=== PATIENT | female | born 1980 | race Two or more races ===

== ENCOUNTER 2023-03-27 14:55 | Inpatient (IN) ==
[2023-03-27] MEDS ORDERED: TUSSIONEX PENNKINETIC SUSP PO PRN (17:09)
[2023-03-27] MEDS ORDERED: SOLU-Medrol 125 MG VIAL IVP ONE (17:10)
[2023-03-27 17:34] LABS: ABG BASE EXCESS 1.2 mmol/L (-2.0-2.0)
[2023-03-27 18:29] LABS: BASOPHILS # (AUTO) 0.2 X10^3/uL (0.0-0.1); BASOPHILS % (AUTO) 0.9 % (0.2-1.0); HEMOGLOBIN 12.8 g/dL (12.0-16.0); LYMPHOCYTES # (AUTO) 3.8 X10^3/uL (1.3-2.9); LYMPHOCYTES % (AUTO) 21.3 % (21.0-51.0); MEAN CORPUSCULAR HEMOGLOBIN 30.9 pg (27.0-34.0); MEAN CORPUSCULAR HGB CONC 33.7 g/dL (33.0-35.0); MEAN CORPUSCULAR VOLUME 91.5 fL (80.0-100.0); MEAN PLATELET VOLUME 8.8 fL (7.4-11.0); MONOCYTES # (AUTO) 1.8 x10^3/uL (0.3-0.8); NEUTROPHILS # (AUTO) 12.1 x10^3/uL (2.2-4.8); NEUTROPHILS % (AUTO) 67.8 % (42.0-75.0); PLATELET COUNT 550 X10^3/uL (150.0-450.0); RED BLOOD COUNT 4.15 X10^6/uL (3.5-5.4); RED CELL DISTRIBUTION WIDTH 14.1 % (11.6-16.5); WHITE BLOOD COUNT 17.8 X10^3/uL (3.6-10.0)
[2023-03-27 18:40] LABS: ALANINE AMINOTRANSFERASE 44 Units/L (12-78); ALBUMIN 3.7 g/dL (3.4-5.0); ALKALINE PHOSPHATASE 115 Units/L (46-116); ASPARTATE AMINO TRANSFERASE 21 Units/L (15-37); BLOOD UREA NITROGEN 7 mg/dL (7-18); CALCIUM 8.8 mg/dL (8.5-10.1); CARBON DIOXIDE 25.4 mmol/L (21-32); CHLORIDE 104 mmol/L (98-107); CREATININE 0.87 mg/dL (0.55-1.02); GLUCOSE 99 mg/dL (65-99); POTASSIUM 3.4 mmol/L (3.5-5.1); SODIUM 139 mmol/L (136-145); TOTAL PROTEIN 8.4 g/dL (6.4-8.2); eGFR NON BLACK RACES > 60 (>60)
[2023-03-27] MEDS: LEVAQUIN PREMIX IV 750 MG 750 MG/150 ML BAG IV SCH (18:48)
[2023-03-27] MEDS ORDERED: NS 1/2 1,000 ML IV 1,000 ML IV ONE (20:22)
--- NOTE | 2023-03-27 20:48 | RAD ---
EXAM:CHEST, PA/LAT ADULTHISTORY:POSSIBLE PNEUMONIA;COMPARISON:None availableTECHNIQUE:PA and lateral projections, 2 imagesFINDINGS:Cardiac silhouette is normal in size and configuration.Pulmonary vascular sizes are normal.No effusion.No focal airspace disease.Surgical clips overlying the right chest.No pneumothorax.No acute osseous abnormalityIMPRESSION:No imaging findings of acute cardiopulmonary disease.THIS IS AN ELECTRONICALLY VERIFIED FINAL [id number]/27/2023 8:44 PM - Electronically signed by Jorge A Guerra MD
[2023-03-27] MEDS: NS 1/2 1,000 ML IV 1,000 ML IV SCH (20:56)
[2023-03-27] MEDS: ROBITUSSIN DM PO SCH (20:56)
[2023-03-27] MEDS: DECADRON JET NEB (RESP USE) NEB SCH (21:15)
[2023-03-27] MEDS: PULMICORT NEB TX 0.5 MG NEB SCH (21:15)
[2023-03-27] MEDS: DUONEB 0.5 MG/3 MG (3 mL) NEB SCH (21:15)
[2023-03-28] MEDS: NS 1/2 1,000 ML IV 1,000 ML IV SCH ×4 (00:27→23:40)
[2023-03-28] MEDS: DUONEB 0.5 MG/3 MG (3 mL) NEB SCH ×6 (00:40→20:30)
[2023-03-28] MEDS: SOLU-Medrol 125 MG VIAL IVP SCH ×3 (05:39→21:12)
[2023-03-28 06:08] LABS: BASOPHILS % (AUTO) 0.3 % (0.2-1.0); HEMATOCRIT 34.3 % (36.0-47.0); HEMOGLOBIN 11.5 g/dL (12.0-16.0); LYMPHOCYTES # (AUTO) 4.2 X10^3/uL (1.3-2.9); LYMPHOCYTES % (AUTO) 25.3 % (21.0-51.0); MEAN CORPUSCULAR HEMOGLOBIN 30.7 pg (27.0-34.0); MEAN CORPUSCULAR HGB CONC 33.6 g/dL (33.0-35.0); MEAN CORPUSCULAR VOLUME 91.4 fL (80.0-100.0); MEAN PLATELET VOLUME 8.2 fL (7.4-11.0); MONOCYTES # (AUTO) 1.7 x10^3/uL (0.3-0.8); MONOCYTES % (AUTO) 10.1 % (0.0-13.0); NEUTROPHILS # (AUTO) 10.6 x10^3/uL (2.2-4.8); NEUTROPHILS % (AUTO) 64.3 % (42.0-75.0); PLATELET COUNT 500 X10^3/uL (150.0-450.0); RED BLOOD COUNT 3.75 X10^6/uL (3.5-5.4); RED CELL DISTRIBUTION WIDTH 13.9 % (11.6-16.5); WHITE BLOOD COUNT 16.5 X10^3/uL (3.6-10.0)
[2023-03-28 06:18] LABS: ALANINE AMINOTRANSFERASE 38 Units/L (12-78); ALBUMIN 3.1 g/dL (3.4-5.0); ALKALINE PHOSPHATASE 93 Units/L (46-116); ASPARTATE AMINO TRANSFERASE 22 Units/L (15-37); BLOOD UREA NITROGEN 9 mg/dL (7-18); CALCIUM 8.2 mg/dL (8.5-10.1); CARBON DIOXIDE 24.5 mmol/L (21-32); CHLORIDE 104 mmol/L (98-107); COR CA(FOR HYPOALB) 8.9 mg/dL (8.5-10.1); COR NA(FOR HYPERGLY) 141 mmol/L (136-145); CREATININE 0.83 mg/dL (0.55-1.02); GLUCOSE 120 mg/dL (65-99); MAGNESIUM 1.9 mg/dL (2.0-2.9); POTASSIUM 3.4 mmol/L (3.5-5.1); SODIUM 141 mmol/L (136-145); TOTAL PROTEIN 7.1 g/dL (6.4-8.2); eGFR NON BLACK RACES > 60 (>60)
[2023-03-28] MEDS ORDERED: CONSULT PHARMACY - POTASSIUM & MAGNESIUM XX SCH (07:00)
[2023-03-28] MEDS ORDERED: K-DUR TAB 20 MEQ PO SCH (09:00)
[2023-03-28] MEDS: DECADRON JET NEB (RESP USE) NEB SCH ×4 (09:10→20:30)
[2023-03-28] MEDS: PULMICORT NEB TX 0.5 MG NEB SCH ×2 (09:10→20:30)
[2023-03-28] MEDS: LEVAQUIN PREMIX IV 750 MG 750 MG/150 ML BAG IV SCH (09:30)
[2023-03-28] MEDS: ROBITUSSIN DM PO SCH ×4 (09:46→20:37)
[2023-03-28] MEDS: MAG-OX TAB PO SCH ×2 (09:47→11:20)
[2023-03-28] MEDS ORDERED: NS 1/2 1,000 ML IV 1,000 ML IV ONE ×2 (09:54→23:22)
--- NOTE | 2023-03-28 15:01 | PCM.PROG ---
Progress Note Progress Note for Day of Date of Exam: 03/28/23 Subjective Subjective: PT IS 42F, DIRECT ADMIT FROM DR LEES'S OFFICE WITH FAILED OUTPATIENT TREATMENT OF ACUTE BRONCHITIS FOLLOWING INFLUENZA VIRUS. PT REPORTS SHE TESTED POSITIVE FOR INFLUENZA LAST FRIDAY. PT TOOK TAMIFLU, PO ANTIBIOTICS AND PO STEROIDS WITHOUT IMPROVEMENT. PT REPORTS DEHYDRATION, FATIGUE AND CCC. PT IS CURRENTLY ON IV ATBX AND SOLU MEDROL. PT IS ON GENTLE IV HYDRATION. PT BP 125/66 THIS MORNING. A RESP SWAB WAS OBTAINED ON ADMISSION, NEGATIVE FOR RSV. AIT PENDING. Past Medical Family Social History Allergies: Allergies No Known Drug Allergies Allergy (Verified 01/16/21 17:43) Vital Signs and I&O's Vital Signs: Vital Signs Temperature 98.2 F Temperature 97.6 F Pulse Rate [Apical] 88 Pulse Rate [Apical] 71 Pulse Rate 70 Respiratory Rate 20 Respiratory Rate 20 Blood Pressure [Left Arm] 125/66 Blood Pressure [Left Arm] 123/58 O2 Sat by Pulse Oximetry 95 O2 Sat by Pulse Oximetry 96 O2 Sat by Pulse Oximetry 96 Intake and Output: Intake & Output 03/26/23 03/27/23 03/28/23 03/29/23 11:59 11:59 11:59 11:59 Intake Total 1061 / 1061 Balance 1061 / 1061 Physical Exam Oriented: Normal Eyes: Normal Ear: Normal Nose: Injected and Discharge Throat: Red Respiratory: Wheezes and Rhonchi Cardiovascular: Normal : Normal Tenderness: Epigastric and Mild Skin: Normal Musculoskeletal: Normal Psychiatric: Normal Mood Description: Calm Speech Pattern: Clear and Appropriate Laboratory and Diagnostics 03/28/23 05:45 03/28/23 05:45 Labs: 03/27/23 22:10 Sputum - Expectorated Sputum - Final Laboratory WBC 16.5 X10^3/uL (3.6-10.0) H 03/28/23 05:45 RBC 3.75 X10^6/uL (3.5-5.4) 03/28/23 05:45 Hgb 11.5 g/dL (12.0-16.0) L 03/28/23 05:45 Hct 34.3 % (36.0-47.0) L 03/28/23 05:45 MCV 91.4 fL (80.0-100.0) 03/28/23 05:45 MCH 30.7 pg (27.0-34.0) 03/28/23 05:45 MCHC 33.6 g/dL (33.0-35.0) 03/28/23 05:45 RDW 13.9 % (11.6-16.5) 03/28/23 05:45 Plt Count 500 X10^3/uL (150.0-450.0) H 03/28/23 05:45 MPV 8.2 fL (7.4-11.0) 03/28/23 05:45 Neut % (Auto) 64.3 % (42.0-75.0) 03/28/23 05:45 Lymph % (Auto) 25.3 % (21.0-51.0) 03/28/23 05:45 [place] % (Auto) 10.1 % (0.0-13.0) 03/28/23 05:45 Eos % (Auto) 0.0 % (0.9-2.9) L 03/28/23 05:45 Baso % (Auto) 0.3 % (0.2-1.0) 03/28/23 05:45 Neut # (Auto) 10.6 x10^3/uL (2.2-4.8) H 03/28/23 05:45 Lymph # (Auto) 4.2 X10^3/uL (1.3-2.9) H 03/28/23 05:45 [place] # (Auto) 1.7 x10^3/uL (0.3-0.8) H 03/28/23 05:45 Eos # (Auto) 0.0 x10^3/uL (0.0-0.2) 03/28/23 05:45 Baso # (Auto) 0.0 X10^3/uL (0.0-0.1) 03/28/23 05:45 Absolute Nucleated RBC 0.0 /100WBC 03/28/23 05:45 Sample Site Lbra 03/27/23 17:29 ABG pH 7.450 (7.35-7.45) 03/27/23 17:29 ABG pCO2 36.0 mmHg (35.0-45.0) 03/27/23 17:29 ABG pO2 78.0 mmHg (80.0-100.0) L 03/27/23 17:29 ABG HCO3 25.0 mmol/L (22-26) 03/27/23 17:29 ABG O2 Saturation 96.0 % (90-100) 03/27/23 17:29 ABG Base Excess 1.2 mmol/L (-2.0-2.0) 03/27/23 17:29 Jairo Test N/a 03/27/23 17:29 A-a Gradient 27.0 mmHg 03/27/23 17:29 FiO2 21.0 03/27/23 17:29 Blood Gas Comments Pt shanthi well elj 03/27/23 17:29 Sodium 141 mmol/L (136-145) 03/28/23 05:45 Corrected Sodium 141 mmol/L (136-145) 03/28/23 05:45 Potassium 3.4 mmol/L (3.5-5.1) L 03/28/23 05:45 Chloride 104 mmol/L (98-107) 03/28/23 05:45 Carbon Dioxide 24.5 mmol/L (21-32) 03/28/23 05:45 BUN 9 mg/dL (7-18) 03/28/23 05:45 Creatinine 0.83 mg/dL (0.55-1.02) 03/28/23 05:45 Est GFR (MDRD) Af Amer > 60 (>60) 03/28/23 05:45 Est GFR (MDRD) Non-Af > 60 (>60) 03/28/23 05:45 Glucose 120 mg/dL (65-99) H 03/28/23 05:45 Calcium 8.2 mg/dL (8.5-10.1) L 03/28/23 05:45 Corrected Calcium 8.9 mg/dL (8.5-10.1) 03/28/23 05:45 Magnesium 1.9 mg/dL (2.0-2.9) L 03/28/23 05:45 Total Bilirubin 0.50 mg/dL (0.2-1.0) 03/28/23 05:45 AST 22 Units/L (15-37) 03/28/23 05:45 ALT 38 Units/L (12-78) 03/28/23 05:45 Alkaline Phosphatase 93 Units/L (46-116) 03/28/23 05:45 Total Protein 7.1 g/dL (6.4-8.2) 03/28/23 05:45 Albumin 3.1 g/dL (3.4-5.0) L 03/28/23 05:45 Globulin 4.0 g/dL (2.5-4.5) 03/28/23 05:45 Albumin/Globulin Ratio 0.8 Ratio (1.1-2.1) L 03/28/23 05:45 SARS-CoV-2 (PCR) Negative (NEGATIVE) 03/27/23 21:13 Influenza Type A (PCR) Negative (NEGATIVE) 03/27/23 21:13 Influenza Type B (PCR) Negative (NEGATIVE) 03/27/23 21:13 RSV (PCR) Negative (NEGATIVE) 03/27/23 21:13 Plan (1) Bronchitis: Status: Acute Narrative Support Text: IV ATBX, IV SOLU MEDROL, IV HYDRATION CXR ON ADMISSION, VERIFY HOME MEDICATION RESP THERAPY, PRN SUPPLEMENTAL O2 VIRAL SWAB ON ADMISSION ANTITUSSIVE MEDICATION (2) Influenza: Status: Acute
--- NOTE | 2023-03-28 15:06 | DR.H&P ---
H&P History & Physical for Day of: H&P Date: 03/27/23 Chief Complaint Chief Complaint: FLU, CCC Allergies Allergies Allergy/AdvReac Type Severity Reaction Status Date / Time No Known Drug Allergies Allergy Verified 01/16/21 17:43 History of Present Illness History of Present Illness: PT IS 42 WF, DIRECT ADMIT FROM DR LEES'S OFFICE WITH AB, FAILED OUTPT TREATMENT. PT REPORTS SHE WAS POSITIVE FOR THE FLU LAST FRIDAY. PT HAD TAKEN PO TAMIFLU, PO ANTIBIOTICS, PO STEROIDS WITH BREATHING TREATMENTS AND NO IMPROVEMENT. PT ADMITTED FOR TREATMENT OF ACUTE ILLNESS. Past Surgical History Surgical History: Cholecystectomy and Spleenectomy Family History Family Medical History: Diabetes Mellitus and Hypertension Social History Does patient currently use any type of tobacco product: No Have you used tobacco products in the last 12 months: No Type of Tobacco Use: None Does any household member use tobacco: No Alcohol Use: None Drug Use: None Medications Home Medications: Home Medications Medication Instructions Recorded Confirmed Type codeine 10 mg-guaifenesin 100 mg/5 10 ml PO Q4-6H PRN 03/27/23 03/27/23 History mL oral liquid levofloxacin 500 mg tablet 500 mg PO QDAY 03/27/23 03/27/23 History lisinopril 10 mg tablet 10 mg PO QDAY 03/27/23 03/27/23 History methylprednisolone 4 mg tablets in 4 mg PO PER PKG DIR 03/27/23 03/27/23 History a dose pack Labs 03/28/23 05:45 03/28/23 05:45 Labs: 03/27/23 22:10 Sputum - Expectorated Sputum - Final Laboratory WBC 16.5 X10^3/uL (3.6-10.0) H 03/28/23 05:45 RBC 3.75 X10^6/uL (3.5-5.4) 03/28/23 05:45 Hgb 11.5 g/dL (12.0-16.0) L 03/28/23 05:45 Hct 34.3 % (36.0-47.0) L 03/28/23 05:45 MCV 91.4 fL (80.0-100.0) 03/28/23 05:45 MCH 30.7 pg (27.0-34.0) 03/28/23 05:45 MCHC 33.6 g/dL (33.0-35.0) 03/28/23 05:45 RDW 13.9 % (11.6-16.5) 03/28/23 05:45 Plt Count 500 X10^3/uL (150.0-450.0) H 03/28/23 05:45 MPV 8.2 fL (7.4-11.0) 03/28/23 05:45 Neut % (Auto) 64.3 % (42.0-75.0) 03/28/23 05:45 Lymph % (Auto) 25.3 % (21.0-51.0) 03/28/23 05:45 [place] % (Auto) 10.1 % (0.0-13.0) 03/28/23 05:45 Eos % (Auto) 0.0 % (0.9-2.9) L 03/28/23 05:45 Baso % (Auto) 0.3 % (0.2-1.0) 03/28/23 05:45 Neut # (Auto) 10.6 x10^3/uL (2.2-4.8) H 03/28/23 05:45 Lymph # (Auto) 4.2 X10^3/uL (1.3-2.9) H 03/28/23 05:45 [place] # (Auto) 1.7 x10^3/uL (0.3-0.8) H 03/28/23 05:45 Eos # (Auto) 0.0 x10^3/uL (0.0-0.2) 03/28/23 05:45 Baso # (Auto) 0.0 X10^3/uL (0.0-0.1) 03/28/23 05:45 Absolute Nucleated RBC 0.0 /100WBC 03/28/23 05:45 Sample Site Lbra 03/27/23 17:29 ABG pH 7.450 (7.35-7.45) 03/27/23 17:29 ABG pCO2 36.0 mmHg (35.0-45.0) 03/27/23 17:29 ABG pO2 78.0 mmHg (80.0-100.0) L 03/27/23 17:29 ABG HCO3 25.0 mmol/L (22-26) 03/27/23 17:29 ABG O2 Saturation 96.0 % (90-100) 03/27/23 17:29 ABG Base Excess 1.2 mmol/L (-2.0-2.0) 03/27/23 17:29 Jairo Test N/a 03/27/23 17:29 A-a Gradient 27.0 mmHg 03/27/23 17:29 FiO2 21.0 03/27/23 17:29 Blood Gas Comments Pt shanthi well elj 03/27/23 17:29 Sodium 141 mmol/L (136-145) 03/28/23 05:45 Corrected Sodium 141 mmol/L (136-145) 03/28/23 05:45 Potassium 3.4 mmol/L (3.5-5.1) L 03/28/23 05:45 Chloride 104 mmol/L (98-107) 03/28/23 05:45 Carbon Dioxide 24.5 mmol/L (21-32) 03/28/23 05:45 BUN 9 mg/dL (7-18) 03/28/23 05:45 Creatinine 0.83 mg/dL (0.55-1.02) 03/28/23 05:45 Est GFR (MDRD) Af Amer > 60 (>60) 03/28/23 05:45 Est GFR (MDRD) Non-Af > 60 (>60) 03/28/23 05:45 Glucose 120 mg/dL (65-99) H 03/28/23 05:45 Calcium 8.2 mg/dL (8.5-10.1) L 03/28/23 05:45 Corrected Calcium 8.9 mg/dL (8.5-10.1) 03/28/23 05:45 Magnesium 1.9 mg/dL (2.0-2.9) L 03/28/23 05:45 Total Bilirubin 0.50 mg/dL (0.2-1.0) 03/28/23 05:45 AST 22 Units/L (15-37) 03/28/23 05:45 ALT 38 Units/L (12-78) 03/28/23 05:45 Alkaline Phosphatase 93 Units/L (46-116) 03/28/23 05:45 Total Protein 7.1 g/dL (6.4-8.2) 03/28/23 05:45 Albumin 3.1 g/dL (3.4-5.0) L 03/28/23 05:45 Globulin 4.0 g/dL (2.5-4.5) 03/28/23 05:45 Albumin/Globulin Ratio 0.8 Ratio (1.1-2.1) L 03/28/23 05:45 SARS-CoV-2 (PCR) Negative (NEGATIVE) 03/27/23 21:13 Influenza Type A (PCR) Negative (NEGATIVE) 03/27/23 21:13 Influenza Type B (PCR) Negative (NEGATIVE) 03/27/23 21:13 RSV (PCR) Negative (NEGATIVE) 03/27/23 21:13 Review of Systems Constitutional: Fever, Weakness and Malaise Eyes: No Symptoms Reported ENT: Nose Congestion and Throat Pain Respiratory: Cough and Wheezing Cardiovascular: No Symptoms Reported Gastrointestinal: Nausea Genitourinary: No Symptoms Reported Musculoskeletal: No Symptoms Reported Skin: No Symptoms Reported Neurological: No Symptoms Reported Physical Exam Vital Signs: Vital Signs Temperature 98.2 F Temperature 97.6 F Pulse Rate [Apical] 88 Pulse Rate [Apical] 71 Pulse Rate 70 Respiratory Rate 20 Respiratory Rate 20 Blood Pressure [Left Arm] 125/66 Blood Pressure [Left Arm] 123/58 O2 Sat by Pulse Oximetry 95 O2 Sat by Pulse Oximetry 96 O2 Sat by Pulse Oximetry 96 Oriented: Normal Eyes: Normal Ear: Normal Nose: Discharge Throat: Exudate Respiratory: Wheezes Throughout Cardiovascular: Normal Auscultation: Bowel Sounds: Normal Palpation: negative Spleen Enlarged (HX SPLEENECTOMY) Tenderness: Epigastric and Mild Skin: Normal Musculoskeletal: Normal Psychiatric: Normal Speech Pattern: Clear and Appropriate Assessment/Plan (1) Bronchitis: Narrative Support Text: IV ATBX, IV HYDRATION RESP THERAPY PRN SUPPLEMENTAL O2 RESP SWAB ON ADMISSION CXR ON ADMISSION, SPUTUM CULTURE ON ADMISSION VERIFY AND RESUME HOME MEDICATION Status: Acute (2) Influenza: Status: Acute
[2023-03-29] MEDS: DUONEB 0.5 MG/3 MG (3 mL) NEB SCH ×6 (01:25→20:25)
[2023-03-29] MEDS: SOLU-Medrol 125 MG VIAL IVP SCH ×3 (05:37→21:00)
[2023-03-29 06:05] LABS: BASOPHILS # (AUTO) 0.2 X10^3/uL (0.0-0.1); BASOPHILS % (AUTO) 1.3 % (0.2-1.0); EOSINOPHILS % (AUTO) 0.1 % (0.9-2.9); HEMATOCRIT 33.9 % (36.0-47.0); HEMOGLOBIN 11.4 g/dL (12.0-16.0); LYMPHOCYTES # (AUTO) 2.3 X10^3/uL (1.3-2.9); LYMPHOCYTES % (AUTO) 13.3 % (21.0-51.0); MEAN CORPUSCULAR HGB CONC 33.8 g/dL (33.0-35.0); MEAN CORPUSCULAR VOLUME 91.8 fL (80.0-100.0); MEAN PLATELET VOLUME 8.4 fL (7.4-11.0); MONOCYTES # (AUTO) 1.1 x10^3/uL (0.3-0.8); MONOCYTES % (AUTO) 6.2 % (0.0-13.0); NEUTROPHILS % (AUTO) 79.1 % (42.0-75.0); PLATELET COUNT 533 X10^3/uL (150.0-450.0); RED BLOOD COUNT 3.69 X10^6/uL (3.5-5.4); RED CELL DISTRIBUTION WIDTH 14.3 % (11.6-16.5); WHITE BLOOD COUNT 17.7 X10^3/uL (3.6-10.0)
[2023-03-29 06:22] LABS: ALANINE AMINOTRANSFERASE 33 Units/L (12-78); ALBUMIN 3.2 g/dL (3.4-5.0); ALKALINE PHOSPHATASE 94 Units/L (46-116); ASPARTATE AMINO TRANSFERASE 17 Units/L (15-37); BLOOD UREA NITROGEN 7 mg/dL (7-18); CALCIUM 8.2 mg/dL (8.5-10.1); CARBON DIOXIDE 25.8 mmol/L (21-32); CHLORIDE 105 mmol/L (98-107); COR CA(FOR HYPOALB) 8.8 mg/dL (8.5-10.1); COR NA(FOR HYPERGLY) 142 mmol/L (136-145); CREATININE 0.69 mg/dL (0.55-1.02); GLUCOSE 182 mg/dL (65-99); MAGNESIUM 2.3 mg/dL (2.0-2.9); POTASSIUM 3.8 mmol/L (3.5-5.1); SODIUM 140 mmol/L (136-145); TOTAL PROTEIN 7.1 g/dL (6.4-8.2); eGFR NON BLACK RACES > 60 (>60)
[2023-03-29 06:23] LABS: PLATELET MORPHOLOGY COMMENT NORMAL (NORMAL)
[2023-03-29] MEDS ORDERED: CONSULT PHARMACY - POTASSIUM & MAGNESIUM XX SCH (07:00)
[2023-03-29 08:07] VITALS: BMI 34.9
[2023-03-29] MEDS ORDERED: K-DUR TAB 20 MEQ PO SCH (09:00)
[2023-03-29] MEDS: PULMICORT NEB TX 0.5 MG NEB SCH ×2 (09:00→20:25)
[2023-03-29] MEDS: DECADRON JET NEB (RESP USE) NEB SCH ×4 (09:00→20:25)
[2023-03-29] MEDS: LEVAQUIN PREMIX IV 750 MG 750 MG/150 ML BAG IV SCH (09:16)
[2023-03-29] MEDS: ROBITUSSIN DM PO SCH ×4 (09:16→20:58)
[2023-03-29] MEDS: NS 1/2 1,000 ML IV 1,000 ML IV SCH ×3 (10:33→21:24)
[2023-03-29] MEDS: DIFLUCAN 200 MG IV PREMIX* 200 MG/100 ML BAG IV SCH (11:16)
[2023-03-29] MEDS ORDERED: NS 1/2 1,000 ML IV 1,000 ML IV ONE (18:17)
--- NOTE | 2023-03-29 20:23 | PCM.PROG ---
Progress Note Progress Note for Day of Date of Exam: 03/29/23 Subjective Subjective: PT IS 42F, DIRECT ADMIT FROM DR LEES'S OFFICE WITH FAILED OUTPATIENT TREATMENT OF ACUTE BRONCHITIS FOLLOWING INFLUENZA VIRUS. PT REPORTS SHE TESTED POSITIVE FOR INFLUENZA LAST FRIDAY. PT TOOK TAMIFLU, PO ANTIBIOTICS AND PO STEROIDS WITHOUT IMPROVEMENT. PT REPORTS DEHYDRATION, FATIGUE AND CCC. PT IS CURRENTLY ON IV ATBX AND SOLU MEDROL. PT IS ON GENTLE IV HYDRATION. PT BP 125/66 THIS MORNING. A RESP SWAB WAS OBTAINED ON ADMISSION, NEGATIVE FOR RSV. AIT PENDING. Friday, 29 March 2023 This is a patient of Dr. Lees who was direct admitted from his office for failed outpatient treatment for acute bronchitis. She is still coughing a lot this morning so I will order her some Tussionex. I see that she grew out Dayna in her sputum so I will add Diflucan 200 mg daily. Her white blood cell count has gone up since yesterday she is 17,700 today. We will repeat the CBC and routine labs again tomorrow morning to see what they are. We will also repeat a chest x-ray tomorrow morning. Past Medical Family Social History Allergies: Allergies No Known Drug Allergies Allergy (Verified 01/16/21 17:43) Review of Systems ROS: No change since H&P Vital Signs and I&O's Vital Signs: Vital Signs Temperature 98.0 F Temperature 98.2 F Pulse Rate [Apical] 85 Pulse Rate [Apical] 81 Respiratory Rate 18 Respiratory Rate 18 Blood Pressure [Left Arm] 136/76 Blood Pressure [Left Arm] 128/64 O2 Sat by Pulse Oximetry 96 O2 Sat by Pulse Oximetry 98 Intake and Output: Intake & Output 03/27/23 03/28/23 03/29/23 03/30/23 11:59 11:59 11:59 11:59 Intake Total 1061 / 1061 2961 / 2961 1313 / 1313 Balance 1061 / 1061 2961 / 2961 1313 / 1313 Physical Exam Oriented: Normal Eyes: Normal Ear: Normal Nose: Discharge Throat: Exudate Respiratory: Wheezes and Rhonchi Cardiovascular: Normal : Normal Auscultation: Bowel Sounds: Normal Tenderness: Epigastric and Mild Skin: Normal Musculoskeletal: Normal Psychiatric: Normal Mood Description: Calm Speech Pattern: Clear and Appropriate Laboratory and Diagnostics 03/29/23 05:28 03/29/23 05:28 Labs: 03/27/23 22:10 Sputum - Expectorated Sputum Sputum Culture - Preliminary 03/27/23 22:10 Sputum - Expectorated Sputum - Final Laboratory WBC 17.7 X10^3/uL (3.6-10.0) H 03/29/23 05:28 RBC 3.69 X10^6/uL (3.5-5.4) 03/29/23 05:28 Hgb 11.4 g/dL (12.0-16.0) L 03/29/23 05:28 Hct 33.9 % (36.0-47.0) L 03/29/23 05:28 MCV 91.8 fL (80.0-100.0) 03/29/23 05:28 MCH 31.0 pg (27.0-34.0) 03/29/23 05:28 MCHC 33.8 g/dL (33.0-35.0) 03/29/23 05:28 RDW 14.3 % (11.6-16.5) 03/29/23 05:28 Plt Count 533 X10^3/uL (150.0-450.0) H 03/29/23 05:28 Plt Count Comment Increased (ADEQUATE) A 03/29/23 05:28 MPV 8.4 fL (7.4-11.0) 03/29/23 05:28 Neut % (Auto) 79.1 % (42.0-75.0) H 03/29/23 05:28 Lymph % (Auto) 13.3 % (21.0-51.0) L 03/29/23 05:28 [place] % (Auto) 6.2 % (0.0-13.0) 03/29/23 05:28 Eos % (Auto) 0.1 % (0.9-2.9) L 03/29/23 05:28 Baso % (Auto) 1.3 % (0.2-1.0) H 03/29/23 05:28 Neut # (Auto) 14.0 x10^3/uL (2.2-4.8) H 03/29/23 05:28 Lymph # (Auto) 2.3 X10^3/uL (1.3-2.9) 03/29/23 05:28 [place] # (Auto) 1.1 x10^3/uL (0.3-0.8) H 03/29/23 05:28 Eos # (Auto) 0.0 x10^3/uL (0.0-0.2) 03/29/23 05:28 Baso # (Auto) 0.2 X10^3/uL (0.0-0.1) H 03/29/23 05:28 Absolute Nucleated RBC 0.0 /100WBC 03/29/23 05:28 Total Counted 100 03/29/23 05:28 Neutrophils % (Manual) 78 % (39-76) H 03/29/23 05:28 Lymphocytes % (Manual) 14 % (13-43) 03/29/23 05:28 Monocytes % (Manual) 8 % (4-9) 03/29/23 05:28 Plt Morphology Comment Normal (NORMAL) 03/29/23 05:28 RBC Morphology Normal (NORMAL) 03/29/23 05:28 Sample Site Lb 03/27/23 17:29 ABG pH 7.450 (7.35-7.45) 03/27/23 17:29 ABG pCO2 36.0 mmHg (35.0-45.0) 03/27/23 17:29 ABG pO2 78.0 mmHg (80.0-100.0) L 03/27/23 17:29 ABG HCO3 25.0 mmol/L (22-26) 03/27/23 17:29 ABG O2 Saturation 96.0 % (90-100) 03/27/23 17:29 ABG Base Excess 1.2 mmol/L (-2.0-2.0) 03/27/23 17:29 Jairo Test N/a 03/27/23 17:29 A-a Gradient 27.0 mmHg 03/27/23 17:29 FiO2 21.0 03/27/23 17:29 Blood Gas Comments Pt shanthi well elj 03/27/23 17:29 Sodium 140 mmol/L (136-145) 03/29/23 05:28 Corrected Sodium 142 mmol/L (136-145) 03/29/23 05:28 Potassium 3.8 mmol/L (3.5-5.1) 03/29/23 05:28 Chloride 105 mmol/L (98-107) 03/29/23 05:28 Carbon Dioxide 25.8 mmol/L (21-32) 03/29/23 05:28 BUN 7 mg/dL (7-18) 03/29/23 05:28 Creatinine 0.69 mg/dL (0.55-1.02) 03/29/23 05:28 Est GFR (MDRD) Af Amer > 60 (>60) 03/29/23 05:28 Est GFR (MDRD) Non-Af > 60 (>60) 03/29/23 05:28 Glucose 182 mg/dL (65-99) H 03/29/23 05:28 Calcium 8.2 mg/dL (8.5-10.1) L 03/29/23 05:28 Corrected Calcium 8.8 mg/dL (8.5-10.1) 03/29/23 05:28 Magnesium 2.3 mg/dL (2.0-2.9) 03/29/23 05:28 Total Bilirubin 0.40 mg/dL (0.2-1.0) 03/29/23 05:28 AST 17 Units/L (15-37) 03/29/23 05:28 ALT 33 Units/L (12-78) 03/29/23 05:28 Alkaline Phosphatase 94 Units/L (46-116) 03/29/23 05:28 Total Protein 7.1 g/dL (6.4-8.2) 03/29/23 05:28 Albumin 3.2 g/dL (3.4-5.0) L 03/29/23 05:28 Globulin 3.9 g/dL (2.5-4.5) 03/29/23 05:28 Albumin/Globulin Ratio 0.8 Ratio (1.1-2.1) L 03/29/23 05:28 SARS-CoV-2 (PCR) Negative (NEGATIVE) 03/27/23 21:13 Influenza Type A (PCR) Negative (NEGATIVE) 03/27/23 21:13 Influenza Type B (PCR) Negative (NEGATIVE) 03/27/23 21:13 RSV (PCR) Negative (NEGATIVE) 03/27/23 21:13 Plan (1) Bronchitis: Status: Acute (2) Influenza: Status: Acute
--- NOTE | 2023-03-29 21:12 | RAD ---
EXAM:CHEST, 1 VIEWHISTORY:pneumonia failed outpatient treatment;COMPARISON:March 27, 2023.TECHNIQUE:A single frontal view of the chest was obtained.FINDINGS:There are multiple surgical clips overlying the right upper lobe. There is [id number] cardiomegaly. There is no focal infiltrate. There is no effusion. There is no pneumothorax. The osseous structures are intact. There are old healed fractures of the left 2nd through 6th posterolateral ribs.IMPRESSION:No focal infiltrate or effusion.[id number] cardiomegaly.THIS IS AN ELECTRONICALLY VERIFIED FINAL [id number]/29/2023 9:09 PM - Electronically signed by Leny Younger MD
[2023-03-30] MEDS: DUONEB 0.5 MG/3 MG (3 mL) NEB SCH ×6 (04:55→20:54)
[2023-03-30] MEDS: SOLU-Medrol 125 MG VIAL IVP SCH ×3 (05:09→21:45)
--- NOTE | 2023-03-30 05:31 | RAD ---
HISTORYPNEUMONIA HX: HTNSTUDYCHEST, 1 [id number]/11/2023FINDINGSThe trachea is midline. Multiple surgical clips overlying the right upper lobe. The cardiac silhouette is unremarkable. The lungs are clear without focal infiltrate or effusion. The bony thorax is unremarkable.IMPRESSIONNo acute cardiopulmonary findings .Electronically signed by: Gentry Beasley (Mar 30, 2023 05:30:17)
[2023-03-30 05:51] LABS: BASOPHILS % (AUTO) 0.1 % (0.2-1.0); HEMATOCRIT 34.1 % (36.0-47.0); HEMOGLOBIN 11.4 g/dL (12.0-16.0); LYMPHOCYTES # (AUTO) 1.8 X10^3/uL (1.3-2.9); LYMPHOCYTES % (AUTO) 8.5 % (21.0-51.0); MEAN CORPUSCULAR HEMOGLOBIN 30.7 pg (27.0-34.0); MEAN CORPUSCULAR HGB CONC 33.3 g/dL (33.0-35.0); MEAN CORPUSCULAR VOLUME 92.1 fL (80.0-100.0); MEAN PLATELET VOLUME 8.5 fL (7.4-11.0); MONOCYTES # (AUTO) 1.8 x10^3/uL (0.3-0.8); MONOCYTES % (AUTO) 8.5 % (0.0-13.0); NEUTROPHILS # (AUTO) 17.3 x10^3/uL (2.2-4.8); NEUTROPHILS % (AUTO) 82.9 % (42.0-75.0); PLATELET COUNT 560 X10^3/uL (150.0-450.0); RED CELL DISTRIBUTION WIDTH 14.3 % (11.6-16.5); WHITE BLOOD COUNT 20.9 X10^3/uL (3.6-10.0)
[2023-03-30 06:08] LABS: ALANINE AMINOTRANSFERASE 34 Units/L (12-78); ALBUMIN 3.2 g/dL (3.4-5.0); ALKALINE PHOSPHATASE 104 Units/L (46-116); ASPARTATE AMINO TRANSFERASE 12 Units/L (15-37); BLOOD UREA NITROGEN 10 mg/dL (7-18); CALCIUM 8.3 mg/dL (8.5-10.1); CARBON DIOXIDE 23.7 mmol/L (21-32); CHLORIDE 103 mmol/L (98-107); COR CA(FOR HYPOALB) 8.9 mg/dL (8.5-10.1); COR NA(FOR HYPERGLY) 141 mmol/L (136-145); CREATININE 0.77 mg/dL (0.55-1.02); GLUCOSE 260 mg/dL (65-99); POTASSIUM 3.9 mmol/L (3.5-5.1); SODIUM 137 mmol/L (136-145); TOTAL PROTEIN 6.9 g/dL (6.4-8.2); eGFR NON BLACK RACES > 60 (>60)
[2023-03-30 06:13] LABS: BAND NEUTROPHILS % 7 % (0-10); METAMYELOCYTES % 2
[2023-03-30 06:14] LABS: PLATELET MORPHOLOGY COMMENT NORMAL (NORMAL)
[2023-03-30] MEDS ORDERED: NS 1/2 1,000 ML IV 1,000 ML IV ONE ×2 (08:56→19:31)
[2023-03-30] MEDS: ROBITUSSIN DM PO SCH ×4 (08:58→21:45)
[2023-03-30] MEDS: DIFLUCAN 200 MG IV PREMIX* 200 MG/100 ML BAG IV SCH (08:58)
[2023-03-30] MEDS: NS 1/2 1,000 ML IV 1,000 ML IV SCH ×3 (08:58→21:43)
[2023-03-30] MEDS: PULMICORT NEB TX 0.5 MG NEB SCH ×2 (08:59→20:55)
[2023-03-30] MEDS: DECADRON JET NEB (RESP USE) NEB SCH ×4 (08:59→20:54)
[2023-03-30] MEDS: LEVAQUIN PREMIX IV 750 MG 750 MG/150 ML BAG IV SCH (10:05)
[2023-03-30] MEDS: TUSSIONEX PENNKINETIC SUSP PO SCH ×2 (11:27→21:45)
[2023-03-30] MEDS: FORTAZ or TAZICEF VIAL INJ 2 G in NS 100 ML IV 100 ML IV SCH ×3 (11:28→21:46)
--- NOTE | 2023-03-30 17:01 | PCM.PROG ---
Progress Note Progress Note for Day of Date of Exam: 03/30/23 Subjective Subjective: PT IS 42F, DIRECT ADMIT FROM DR LEES'S OFFICE WITH FAILED OUTPATIENT TREATMENT OF ACUTE BRONCHITIS FOLLOWING INFLUENZA VIRUS. PT REPORTS SHE TESTED POSITIVE FOR INFLUENZA LAST FRIDAY. PT TOOK TAMIFLU, PO ANTIBIOTICS AND PO STEROIDS WITHOUT IMPROVEMENT. PT REPORTS DEHYDRATION, FATIGUE AND CCC. PT IS CURRENTLY ON IV ATBX AND SOLU MEDROL. PT IS ON GENTLE IV HYDRATION. PT BP 125/66 THIS MORNING. A RESP SWAB WAS OBTAINED ON ADMISSION, NEGATIVE FOR RSV. AIT PENDING. Friday, 29 March 2023 This is a patient of Dr. Lees who was direct admitted from his office for failed outpatient treatment for acute bronchitis. She is still coughing a lot this morning so I will order her some Tussionex. I see that she grew out Dayna in her sputum so I will add Diflucan 200 mg daily. Her white blood cell count has gone up since yesterday she is 17,700 today. We will repeat the CBC and routine labs again tomorrow morning to see what they are. We will also repeat a chest x-ray tomorrow morning. Friday, 30 March 2023 The patient is still coughing a lot this morning and I see that her white blood cell count is going to 20,900. I will go ahead and add Fortaz today 2 g IV every 8 hours. Also change her Tussionex cough medicine from the RN as scheduled. Also recheck a.m. labs are and chest x-ray again in the morning. Patient's chest x-ray is clear today but she still has decreased air entry on auscultation. We will continue her current treatment at this time see if she will start moving more air in the next day or two. Past Medical Family Social History Allergies: Allergies No Known Drug Allergies Allergy (Verified 01/16/21 17:43) Review of Systems ROS: No change since H&P Vital Signs and I&O's Vital Signs: Vital Signs Temperature 97.1 F Temperature 97.9 F Pulse Rate [Apical] 89 Pulse Rate [Apical] 84 Pulse Rate 82 Respiratory Rate 18 Respiratory Rate 20 Blood Pressure [Left Arm] 120/66 Blood Pressure [Left Arm] 123/65 O2 Sat by Pulse Oximetry 93 O2 Sat by Pulse Oximetry 95 O2 Sat by Pulse Oximetry 95 Intake and Output: Intake & Output 03/28/23 03/29/23 03/30/23 03/31/23 11:59 11:59 11:59 11:59 Intake Total 1061 / 1061 2961 / 2961 2406 / 2406 600 / 600 Balance 1061 / 1061 2961 / 2961 2406 / 2406 600 / 600 Physical Exam Oriented: Normal Eyes: Normal Ear: Normal Nose: Discharge Throat: Exudate Respiratory: Wheezes and Rhonchi Cardiovascular: Normal : Normal Auscultation: Bowel Sounds: Normal Tenderness: Epigastric and Mild Skin: Normal Musculoskeletal: Normal Psychiatric: Normal Mood Description: Calm Speech Pattern: Clear and Appropriate Laboratory and Diagnostics 03/30/23 05:06 03/30/23 05:06 Labs: 03/27/23 22:10 Sputum - Expectorated Sputum Sputum Culture - Preliminary 03/27/23 22:10 Sputum - Expectorated Sputum - Final Laboratory WBC 20.9 X10^3/uL (3.6-10.0) H 03/30/23 05:06 RBC 3.70 X10^6/uL (3.5-5.4) 03/30/23 05:06 Hgb 11.4 g/dL (12.0-16.0) L 03/30/23 05:06 Hct 34.1 % (36.0-47.0) L 03/30/23 05:06 MCV 92.1 fL (80.0-100.0) 03/30/23 05:06 MCH 30.7 pg (27.0-34.0) 03/30/23 05:06 MCHC 33.3 g/dL (33.0-35.0) 03/30/23 05:06 RDW 14.3 % (11.6-16.5) 03/30/23 05:06 Plt Count 560 X10^3/uL (150.0-450.0) H 03/30/23 05:06 Plt Count Comment Increased (ADEQUATE) A 03/30/23 05:06 MPV 8.5 fL (7.4-11.0) 03/30/23 05:06 Neut % (Auto) 82.9 % (42.0-75.0) H 03/30/23 05:06 Lymph % (Auto) 8.5 % (21.0-51.0) L 03/30/23 05:06 Pender % (Auto) 8.5 % (0.0-13.0) 03/30/23 05:06 Eos % (Auto) 0.0 % (0.9-2.9) L 03/30/23 05:06 Baso % (Auto) 0.1 % (0.2-1.0) L 03/30/23 05:06 Neut # (Auto) 17.3 x10^3/uL (2.2-4.8) H 03/30/23 05:06 Lymph # (Auto) 1.8 X10^3/uL (1.3-2.9) 03/30/23 05:06 Pender # (Auto) 1.8 x10^3/uL (0.3-0.8) H 03/30/23 05:06 Eos # (Auto) 0.0 x10^3/uL (0.0-0.2) 03/30/23 05:06 Baso # (Auto) 0.0 X10^3/uL (0.0-0.1) 03/30/23 05:06 Absolute Nucleated RBC 0.1 /100WBC 03/30/23 05:06 Total Counted 100 03/30/23 05:06 Neutrophils % (Manual) 73 % (39-76) 03/30/23 05:06 Band Neutrophils % 7 % (0-10) 03/30/23 05:06 Lymphocytes % (Manual) 9 % (13-43) L 03/30/23 05:06 Monocytes % (Manual) 9 % (4-9) 03/30/23 05:06 Metamyelocytes % 2 03/30/23 05:06 Plt Morphology Comment Normal (NORMAL) 03/30/23 05:06 RBC Morphology Normal (NORMAL) 03/30/23 05:06 Sample Site Lbra 03/27/23 17:29 ABG pH 7.450 (7.35-7.45) 03/27/23 17:29 ABG pCO2 36.0 mmHg (35.0-45.0) 03/27/23 17:29 ABG pO2 78.0 mmHg (80.0-100.0) L 03/27/23 17:29 ABG HCO3 25.0 mmol/L (22-26) 03/27/23 17:29 ABG O2 Saturation 96.0 % (90-100) 03/27/23 17:29 ABG Base Excess 1.2 mmol/L (-2.0-2.0) 03/27/23 17:29 Jairo Test N/a 03/27/23 17:29 A-a Gradient 27.0 mmHg 03/27/23 17:29 FiO2 21.0 03/27/23 17:29 Blood Gas Comments Pt shanthi well elj 03/27/23 17:29 Sodium 137 mmol/L (136-145) 03/30/23 05:06 Corrected Sodium 141 mmol/L (136-145) 03/30/23 05:06 Potassium 3.9 mmol/L (3.5-5.1) 03/30/23 05:06 Chloride 103 mmol/L (98-107) 03/30/23 05:06 Carbon Dioxide 23.7 mmol/L (21-32) 03/30/23 05:06 BUN 10 mg/dL (7-18) 03/30/23 05:06 Creatinine 0.77 mg/dL (0.55-1.02) 03/30/23 05:06 Est GFR (MDRD) Af Amer > 60 (>60) 03/30/23 05:06 Est GFR (MDRD) Non-Af > 60 (>60) 03/30/23 05:06 Glucose 260 mg/dL (65-99) H 03/30/23 05:06 Calcium 8.3 mg/dL (8.5-10.1) L 03/30/23 05:06 Corrected Calcium 8.9 mg/dL (8.5-10.1) 03/30/23 05:06 Magnesium 2.3 mg/dL (2.0-2.9) 03/29/23 05:28 Total Bilirubin 0.40 mg/dL (0.2-1.0) 03/30/23 05:06 AST 12 Units/L (15-37) L 03/30/23 05:06 ALT 34 Units/L (12-78) 03/30/23 05:06 Alkaline Phosphatase 104 Units/L (46-116) 03/30/23 05:06 Total Protein 6.9 g/dL (6.4-8.2) 03/30/23 05:06 Albumin 3.2 g/dL (3.4-5.0) L 03/30/23 05:06 Globulin 3.7 g/dL (2.5-4.5) 03/30/23 05:06 Albumin/Globulin Ratio 0.9 Ratio (1.1-2.1) L 03/30/23 05:06 SARS-CoV-2 (PCR) Negative (NEGATIVE) 03/27/23 21:13 Influenza Type A (PCR) Negative (NEGATIVE) 03/27/23 21:13 Influenza Type B (PCR) Negative (NEGATIVE) 03/27/23 21:13 RSV (PCR) Negative (NEGATIVE) 03/27/23 21:13 Resp Viral Panel (PCR) See scanned report 03/27/23 17:45 Radiology Reviewed: Yes Plan (1) Bronchitis: Status: Acute (2) Influenza: Status: Acute
[2023-03-31] MEDS: DUONEB 0.5 MG/3 MG (3 mL) NEB SCH ×6 (00:02→20:50)
--- NOTE | 2023-03-31 05:09 | RAD ---
HISTORYpneumonia Relevant Clinical InformationSTUDYCHEST, 1 [id number]/12/2023FINDINGSThe trachea is midline. The cardiac silhouette is unremarkable. The lungs are clear without focal infiltrate or effusion. The bony thorax is unremarkable.IMPRESSIONNo acute cardiopulmonary findings .Electronically signed by: Gentry Beasley (Mar 31, 2023 05:04:04)
[2023-03-31] MEDS: SOLU-Medrol 125 MG VIAL IVP SCH ×3 (05:29→21:22)
[2023-03-31] MEDS: FORTAZ or TAZICEF VIAL INJ 2 G in NS 100 ML IV 100 ML IV SCH ×3 (05:29→21:21)
[2023-03-31 06:02] LABS: BASOPHILS # (AUTO) 0.1 X10^3/uL (0.0-0.1); BASOPHILS % (AUTO) 0.4 % (0.2-1.0); HEMOGLOBIN 11.5 g/dL (12.0-16.0); LYMPHOCYTES # (AUTO) 1.6 X10^3/uL (1.3-2.9); LYMPHOCYTES % (AUTO) 7.9 % (21.0-51.0); MEAN CORPUSCULAR HEMOGLOBIN 30.4 pg (27.0-34.0); MEAN CORPUSCULAR HGB CONC 32.9 g/dL (33.0-35.0); MEAN CORPUSCULAR VOLUME 92.5 fL (80.0-100.0); MEAN PLATELET VOLUME 8.5 fL (7.4-11.0); MONOCYTES # (AUTO) 1.4 x10^3/uL (0.3-0.8); MONOCYTES % (AUTO) 7.1 % (0.0-13.0); NEUTROPHILS # (AUTO) 16.9 x10^3/uL (2.2-4.8); NEUTROPHILS % (AUTO) 84.6 % (42.0-75.0); PLATELET COUNT 525 X10^3/uL (150.0-450.0); RED BLOOD COUNT 3.78 X10^6/uL (3.5-5.4); RED CELL DISTRIBUTION WIDTH 14.5 % (11.6-16.5)
[2023-03-31] MEDS: NS 1/2 1,000 ML IV 1,000 ML IV SCH ×3 (06:07→21:35)
[2023-03-31 06:21] LABS: ALANINE AMINOTRANSFERASE 39 Units/L (12-78); ALBUMIN 3.1 g/dL (3.4-5.0); ALKALINE PHOSPHATASE 115 Units/L (46-116); ASPARTATE AMINO TRANSFERASE 16 Units/L (15-37); BLOOD UREA NITROGEN 14 mg/dL (7-18); CALCIUM 8.2 mg/dL (8.5-10.1); CARBON DIOXIDE 23.7 mmol/L (21-32); CHLORIDE 102 mmol/L (98-107); COR CA(FOR HYPOALB) 8.9 mg/dL (8.5-10.1); COR NA(FOR HYPERGLY) 140 mmol/L (136-145); CREATININE 0.87 mg/dL (0.55-1.02); GLUCOSE 253 mg/dL (65-99); MAGNESIUM 2.1 mg/dL (2.0-2.9); POTASSIUM 3.6 mmol/L (3.5-5.1); SODIUM 136 mmol/L (136-145); TOTAL PROTEIN 6.9 g/dL (6.4-8.2); eGFR NON BLACK RACES > 60 (>60)
[2023-03-31 06:41] LABS: METAMYELOCYTES % 1
[2023-03-31 06:42] LABS: BAND NEUTROPHILS % 3 % (0-10)
[2023-03-31 06:43] LABS: PLATELET MORPHOLOGY COMMENT NORMAL (NORMAL)
[2023-03-31] MEDS ORDERED: CONSULT PHARMACY - POTASSIUM & MAGNESIUM XX SCH (07:00)
[2023-03-31] MEDS ORDERED: K-DUR TAB 20 MEQ PO SCH (09:00)
[2023-03-31] MEDS: DECADRON JET NEB (RESP USE) NEB SCH ×4 (09:13→20:50)
[2023-03-31] MEDS: PULMICORT NEB TX 0.5 MG NEB SCH ×2 (09:13→20:50)
[2023-03-31] MEDS: LEVAQUIN PREMIX IV 750 MG 750 MG/150 ML BAG IV SCH (09:32)
[2023-03-31] MEDS: ROBITUSSIN DM PO SCH ×5 (09:32→21:34)
[2023-03-31] MEDS ORDERED: OMNIPAQUE 350 mg/mL 100 mL BTL 100 ML ONE (09:55)
[2023-03-31] MEDS ORDERED: NS 100 ML IV 100 ML ONE (09:55)
[2023-03-31] MEDS: TUSSIONEX PENNKINETIC SUSP PO SCH ×2 (10:55→22:17)
[2023-03-31] MEDS: DIFLUCAN 200 MG IV PREMIX* 200 MG/100 ML BAG IV SCH (10:56)
[2023-03-31] MEDS: PROTONIX INJ 40 MG VIAL IVP SCH (19:49)
[2023-03-31] MEDS: ZyrTEC TAB 10 MG PO SCH (19:49)
[2023-03-31] MEDS ORDERED: NS 1/2 1,000 ML IV 1,000 ML IV ONE (21:11)
[2023-04-01] MEDS: DUONEB 0.5 MG/3 MG (3 mL) NEB SCH ×6 (00:30→21:15)
[2023-04-01] MEDS: NS 1/2 1,000 ML IV 1,000 ML IV SCH ×3 (02:41→16:45)
[2023-04-01] MEDS: FORTAZ or TAZICEF VIAL INJ 2 G in NS 100 ML IV 100 ML IV SCH ×3 (05:10→21:12)
[2023-04-01 05:55] LABS: BASOPHILS % (AUTO) 0.3 % (0.2-1.0); HEMATOCRIT 35.8 % (36.0-47.0); HEMOGLOBIN 11.7 g/dL (12.0-16.0); LYMPHOCYTES # (AUTO) 1.6 X10^3/uL (1.3-2.9); LYMPHOCYTES % (AUTO) 8.3 % (21.0-51.0); MEAN CORPUSCULAR HEMOGLOBIN 30.4 pg (27.0-34.0); MEAN CORPUSCULAR HGB CONC 32.8 g/dL (33.0-35.0); MEAN CORPUSCULAR VOLUME 92.8 fL (80.0-100.0); MEAN PLATELET VOLUME 8.5 fL (7.4-11.0); MONOCYTES # (AUTO) 1.4 x10^3/uL (0.3-0.8); NEUTROPHILS # (AUTO) 16.5 x10^3/uL (2.2-4.8); NEUTROPHILS % (AUTO) 84.4 % (42.0-75.0); PLATELET COUNT 540 X10^3/uL (150.0-450.0); RED BLOOD COUNT 3.86 X10^6/uL (3.5-5.4); RED CELL DISTRIBUTION WIDTH 14.7 % (11.6-16.5); WHITE BLOOD COUNT 19.6 X10^3/uL (3.6-10.0)
[2023-04-01 06:13] LABS: BAND NEUTROPHILS % 3 % (0-10); METAMYELOCYTES % 2; MYELOCYTES % 1; PLATELET MORPHOLOGY COMMENT NORMAL (NORMAL); SCHISTOCYTES SLIGHT
[2023-04-01 06:15] LABS: ALANINE AMINOTRANSFERASE 39 Units/L (12-78); ALKALINE PHOSPHATASE 91 Units/L (46-116); ASPARTATE AMINO TRANSFERASE 15 Units/L (15-37); BLOOD UREA NITROGEN 13 mg/dL (7-18); CALCIUM 8.4 mg/dL (8.5-10.1); CARBON DIOXIDE 24.1 mmol/L (21-32); CHLORIDE 102 mmol/L (98-107); COR CA(FOR HYPOALB) 9.2 mg/dL (8.5-10.1); COR NA(FOR HYPERGLY) 139 mmol/L (136-145); CREATININE 0.96 mg/dL (0.55-1.02); GLUCOSE 231 mg/dL (65-99); SODIUM 136 mmol/L (136-145); TOTAL PROTEIN 6.7 g/dL (6.4-8.2); eGFR NON BLACK RACES > 60 (>60)
--- NOTE | 2023-04-01 07:40 | CT ---
PROCEDURE: CT Chest without Contrast .HISTORY: Recent influenza and current pneumonia.TECHNIQUE: Axial images were performed through the chest without the administration of IV contrast with multiplanar reformations . Dose reduction techniques including Automated Exposure Control (AEC) and adjustment of mA and kV were utilized .COMPARISON: None .TECHNICAL QUALITY: Satisfactory .FINDINGS:Normal thoracic aorta.Mediastinum and hilar regions show no masses or lymphadenopathy.Normal size heart with no pericardial fluid.Bone collect hernia left lung base. No pulmonary consolidation, masses, or pleural fluid.Visualized upper abdomen shows previous cholecystectomy.No acute bony abnormality. Multiple rib fractures with bony deformity posteriorly.IMPRESSION:1. No evidence of pneumonia.2. Old rib fractures bilaterally.3. No other significant abnormality identified.Electronically signed by: Ramos Arnold (Apr 01, 2023 07:38:52)
[2023-04-01] MEDS: ROBITUSSIN DM PO SCH ×4 (08:01→20:19)
[2023-04-01] MEDS: PROTONIX INJ 40 MG VIAL IVP SCH (08:45)
[2023-04-01] MEDS: LEVAQUIN PREMIX IV 750 MG 750 MG/150 ML BAG IV SCH (08:45)
[2023-04-01] MEDS: SOLU-Medrol 125 MG VIAL IVP SCH ×2 (08:45→20:18)
[2023-04-01] MEDS: ZyrTEC TAB 10 MG PO SCH (08:45)
[2023-04-01] MEDS: DECADRON JET NEB (RESP USE) NEB SCH ×4 (08:57→21:15)
[2023-04-01] MEDS: PULMICORT NEB TX 0.5 MG NEB SCH ×2 (08:57→21:15)
[2023-04-01] MEDS: DIFLUCAN 200 MG IV PREMIX* 200 MG/100 ML BAG IV SCH (10:11)
[2023-04-01] MEDS: TUSSIONEX PENNKINETIC SUSP PO SCH ×2 (10:12→21:12)
[2023-04-01] MEDS: TESSALON PERLES PO PRN ×3 (10:17→20:19)
[2023-04-01] MEDS ORDERED: NS 1/2 1,000 ML IV 1,000 ML IV ONE (16:36)
--- NOTE | 2023-04-01 17:53 | PCM.PROG ---
Progress Note Progress Note for Day of Date of Exam: 04/01/23 Subjective Subjective: This is a 43-year-old female who failed outpatient treatment of bronchitis following influenza virus. She is currently on corticosteroids, IV antibiotics. The patient has been on Duonebs, and as needed supplemental O2. She continues with diffuse expiratory wheezes throughout. The patient denies any history of smoking. We discussed CT chest results. Her white count is at 19.6 and again, she has been on corticosteroids. Her hemoglobin is 11.7. Renal function is stable. Her sugar is at 231 and we will decrease her corticosteroid therapy. She is on antitussive medication. The patient is on Levaquin at this time. She states that she continues with cough using antitussives regularly. We will decrease her corticosteroids down to 40 twice a day and add PPI therapy twice a day, along with a daily antihistamine, Zyrtec. Past Medical Family Social History Allergies: Allergies No Known Drug Allergies Allergy (Verified 01/16/21 17:43) Review of Systems ROS: No change since H&P Vital Signs and I&O's Vital Signs: Vital Signs Temperature 98.5 F Temperature 98.2 F Pulse Rate [Apical] 99 Pulse Rate [Apical] 87 Respiratory Rate 20 Respiratory Rate 20 Blood Pressure [Left Arm] 135/70 Blood Pressure [Left Arm] 138/78 O2 Sat by Pulse Oximetry 97 O2 Sat by Pulse Oximetry 96 Intake and Output: Intake & Output 03/30/23 03/31/23 04/01/23 04/02/23 11:59 11:59 11:59 11:59 Intake Total 2406 / 2406 3121 / 3121 3144 / 3144 1814 / 1814 Balance 2406 / 2406 3121 / 3121 3144 / 3144 1814 / 1814 Physical Exam Oriented: Normal Eyes: Normal Ear: Normal Nose: Discharge Throat: Exudate Respiratory: Wheezes and Rhonchi Cardiovascular: Normal : Normal Auscultation: Bowel Sounds: Normal Tenderness: Epigastric and Mild Skin: Normal Musculoskeletal: Normal Psychiatric: Normal Mood Description: Calm Speech Pattern: Clear and Appropriate Laboratory and Diagnostics 04/01/23 05:30 04/01/23 05:30 Labs: 03/27/23 22:10 Sputum - Expectorated Sputum Sputum Culture - Preliminary 03/27/23 22:10 Sputum - Expectorated Sputum - Final Laboratory WBC 19.6 X10^3/uL (3.6-10.0) H 04/01/23 05:30 RBC 3.86 X10^6/uL (3.5-5.4) 04/01/23 05:30 Hgb 11.7 g/dL (12.0-16.0) L 04/01/23 05:30 Hct 35.8 % (36.0-47.0) L 04/01/23 05:30 MCV 92.8 fL (80.0-100.0) 04/01/23 05:30 MCH 30.4 pg (27.0-34.0) 04/01/23 05:30 MCHC 32.8 g/dL (33.0-35.0) L 04/01/23 05:30 RDW 14.7 % (11.6-16.5) 04/01/23 05:30 Plt Count 540 X10^3/uL (150.0-450.0) H 04/01/23 05:30 Plt Count Comment Increased (ADEQUATE) A 04/01/23 05:30 MPV 8.5 fL (7.4-11.0) 04/01/23 05:30 Neut % (Auto) 84.4 % (42.0-75.0) H 04/01/23 05:30 Lymph % (Auto) 8.3 % (21.0-51.0) L 04/01/23 05:30 [place] % (Auto) 7.0 % (0.0-13.0) 04/01/23 05:30 Eos % (Auto) 0.0 % (0.9-2.9) L 04/01/23 05:30 Baso % (Auto) 0.3 % (0.2-1.0) 04/01/23 05:30 Neut # (Auto) 16.5 x10^3/uL (2.2-4.8) H 04/01/23 05:30 Lymph # (Auto) 1.6 X10^3/uL (1.3-2.9) 04/01/23 05:30 [place] # (Auto) 1.4 x10^3/uL (0.3-0.8) H 04/01/23 05:30 Eos # (Auto) 0.0 x10^3/uL (0.0-0.2) 04/01/23 05:30 Baso # (Auto) 0.0 X10^3/uL (0.0-0.1) 04/01/23 05:30 Absolute Nucleated RBC 0.1 /100WBC 04/01/23 05:30 Total Counted 100 04/01/23 05:30 Neutrophils % (Manual) 77 % (39-76) H 04/01/23 05:30 Band Neutrophils % 3 % (0-10) 04/01/23 05:30 Lymphocytes % (Manual) 8 % (13-43) L 04/01/23 05:30 Monocytes % (Manual) 9 % (4-9) 04/01/23 05:30 Metamyelocytes % 2 04/01/23 05:30 Myelocytes % 1 04/01/23 05:30 Plt Morphology Comment Normal (NORMAL) 04/01/23 05:30 RBC Morphology Abnormal (NORMAL) A 04/01/23 05:30 Schistocytes Slight A 04/01/23 05:30 Sample Site Lb 03/27/23 17:29 ABG pH 7.450 (7.35-7.45) 03/27/23 17:29 ABG pCO2 36.0 mmHg (35.0-45.0) 03/27/23 17:29 ABG pO2 78.0 mmHg (80.0-100.0) L 03/27/23 17:29 ABG HCO3 25.0 mmol/L (22-26) 03/27/23 17:29 ABG O2 Saturation 96.0 % (90-100) 03/27/23 17:29 ABG Base Excess 1.2 mmol/L (-2.0-2.0) 03/27/23 17:29 Jairo Test N/a 03/27/23 17:29 A-a Gradient 27.0 mmHg 03/27/23 17:29 FiO2 21.0 03/27/23 17:29 Blood Gas Comments Pt shanthi well elj 03/27/23 17:29 Sodium 136 mmol/L (136-145) 04/01/23 05:30 Corrected Sodium 139 mmol/L (136-145) 04/01/23 05:30 Potassium 4.0 mmol/L (3.5-5.1) 04/01/23 05:30 Chloride 102 mmol/L (98-107) 04/01/23 05:30 Carbon Dioxide 24.1 mmol/L (21-32) 04/01/23 05:30 BUN 13 mg/dL (7-18) 04/01/23 05:30 Creatinine 0.96 mg/dL (0.55-1.02) 04/01/23 05:30 Est GFR (MDRD) Af Amer > 60 (>60) 04/01/23 05:30 Est GFR (MDRD) Non-Af > 60 (>60) 04/01/23 05:30 Glucose 231 mg/dL (65-99) H 04/01/23 05:30 Calcium 8.4 mg/dL (8.5-10.1) L 04/01/23 05:30 Corrected Calcium 9.2 mg/dL (8.5-10.1) 04/01/23 05:30 Magnesium 2.1 mg/dL (2.0-2.9) 03/31/23 05:19 Total Bilirubin 0.50 mg/dL (0.2-1.0) 04/01/23 05:30 AST 15 Units/L (15-37) 04/01/23 05:30 ALT 39 Units/L (12-78) 04/01/23 05:30 Alkaline Phosphatase 91 Units/L (46-116) 04/01/23 05:30 Total Protein 6.7 g/dL (6.4-8.2) 04/01/23 05:30 Albumin 3.0 g/dL (3.4-5.0) L 04/01/23 05:30 Globulin 3.7 g/dL (2.5-4.5) 04/01/23 05:30 Albumin/Globulin Ratio 0.8 Ratio (1.1-2.1) L 04/01/23 05:30 SARS-CoV-2 (PCR) Negative (NEGATIVE) 03/27/23 21:13 Influenza Type A (PCR) Negative (NEGATIVE) 03/27/23 21:13 Influenza Type B (PCR) Negative (NEGATIVE) 03/27/23 21:13 RSV (PCR) Negative (NEGATIVE) 03/27/23 21:13 Resp Viral Panel (PCR) See scanned report 03/27/23 17:45 Plan (1) Bronchitis: Status: Acute Narrative Support Text: CONTINUE IV ATBX THERAPY, IV SOLU MEDROL GENTLE IV HYDRATION DUO NEBS, REPEAT AM LABS BS CONTROL (2) Influenza: Status: Acute
[2023-04-02] MEDS: DUONEB 0.5 MG/3 MG (3 mL) NEB SCH ×6 (00:30→20:21)
[2023-04-02] MEDS: NS 1/2 1,000 ML IV 1,000 ML IV SCH (04:57)
[2023-04-02] MEDS: FORTAZ or TAZICEF VIAL INJ 2 G in NS 100 ML IV 100 ML IV SCH ×3 (05:08→21:19)
[2023-04-02 06:04] LABS: BASOPHILS % (AUTO) 0.2 % (0.2-1.0); HEMATOCRIT 35.4 % (36.0-47.0); HEMOGLOBIN 11.6 g/dL (12.0-16.0); LYMPHOCYTES # (AUTO) 1.2 X10^3/uL (1.3-2.9); LYMPHOCYTES % (AUTO) 6.1 % (21.0-51.0); MEAN CORPUSCULAR HEMOGLOBIN 30.5 pg (27.0-34.0); MEAN CORPUSCULAR HGB CONC 32.9 g/dL (33.0-35.0); MEAN CORPUSCULAR VOLUME 92.7 fL (80.0-100.0); MEAN PLATELET VOLUME 8.7 fL (7.4-11.0); MONOCYTES # (AUTO) 1.1 x10^3/uL (0.3-0.8); MONOCYTES % (AUTO) 5.9 % (0.0-13.0); NEUTROPHILS # (AUTO) 17.1 x10^3/uL (2.2-4.8); NEUTROPHILS % (AUTO) 87.8 % (42.0-75.0); PLATELET COUNT 491 X10^3/uL (150.0-450.0); RED BLOOD COUNT 3.82 X10^6/uL (3.5-5.4); RED CELL DISTRIBUTION WIDTH 14.8 % (11.6-16.5); WHITE BLOOD COUNT 19.4 X10^3/uL (3.6-10.0)
[2023-04-02 06:19] LABS: ALANINE AMINOTRANSFERASE 42 Units/L (12-78); ALBUMIN 2.8 g/dL (3.4-5.0); ALKALINE PHOSPHATASE 107 Units/L (46-116); ASPARTATE AMINO TRANSFERASE 17 Units/L (15-37); BLOOD UREA NITROGEN 14 mg/dL (7-18); CALCIUM 7.9 mg/dL (8.5-10.1); CARBON DIOXIDE 23.5 mmol/L (21-32); CHLORIDE 99 mmol/L (98-107); COR CA(FOR HYPOALB) 8.9 mg/dL (8.5-10.1); COR NA(FOR HYPERGLY) 139 mmol/L (136-145); CREATININE 0.95 mg/dL (0.55-1.02); GLUCOSE 291 mg/dL (65-99); POTASSIUM 3.3 mmol/L (3.5-5.1); SODIUM 134 mmol/L (136-145); TOTAL PROTEIN 6.3 g/dL (6.4-8.2); eGFR NON BLACK RACES > 60 (>60)
[2023-04-02 06:21] LABS: PLATELET MORPHOLOGY COMMENT NORMAL (NORMAL)
[2023-04-02] MEDS ORDERED: CONSULT PHARMACY - POTASSIUM & MAGNESIUM XX SCH (08:00)
[2023-04-02] MEDS: PULMICORT NEB TX 0.5 MG NEB SCH ×2 (08:54→20:21)
[2023-04-02] MEDS: DECADRON JET NEB (RESP USE) NEB SCH ×4 (08:54→20:21)
[2023-04-02] MEDS: SOLU-Medrol 125 MG VIAL IVP SCH (09:00)
[2023-04-02] MEDS: NS 1/2 + KCL 20 MEQ/L 1,000 ML IV SCH ×2 (10:26→21:19)
[2023-04-02] MEDS: ROBITUSSIN DM PO SCH ×4 (10:26→20:22)
[2023-04-02] MEDS: LEVAQUIN PREMIX IV 750 MG 750 MG/150 ML BAG IV SCH (10:27)
[2023-04-02] MEDS: ZyrTEC TAB 10 MG PO SCH (10:27)
[2023-04-02] MEDS: DIFLUCAN 200 MG IV PREMIX* 200 MG/100 ML BAG IV SCH (10:27)
[2023-04-02] MEDS: PROTONIX INJ 40 MG VIAL IVP SCH (10:27)
[2023-04-02] MEDS: TUSSIONEX PENNKINETIC SUSP PO SCH ×2 (10:43→21:19)
[2023-04-02] MEDS ORDERED: PREDNISONE TAB 10 MG PO ONE ×2 (12:00→14:23)
[2023-04-02] MEDS ORDERED: PREDNISONE TAB 20 MG PO ONE (14:23)
[2023-04-03] MEDS: DUONEB 0.5 MG/3 MG (3 mL) NEB SCH ×3 (00:04→08:26)
[2023-04-03] MEDS: NS 1/2 + KCL 20 MEQ/L 1,000 ML IV SCH (01:55)
[2023-04-03] MEDS: FORTAZ or TAZICEF VIAL INJ 2 G in NS 100 ML IV 100 ML IV SCH (05:05)
[2023-04-03 05:51] LABS: BASOPHILS # (AUTO) 0.1 X10^3/uL (0.0-0.1); BASOPHILS % (AUTO) 0.4 % (0.2-1.0); EOSINOPHILS % (AUTO) 0.1 % (0.9-2.9); HEMATOCRIT 34.9 % (36.0-47.0); HEMOGLOBIN 11.6 g/dL (12.0-16.0); LYMPHOCYTES # (AUTO) 1.5 X10^3/uL (1.3-2.9); LYMPHOCYTES % (AUTO) 6.7 % (21.0-51.0); MEAN CORPUSCULAR HEMOGLOBIN 30.5 pg (27.0-34.0); MEAN CORPUSCULAR HGB CONC 33.3 g/dL (33.0-35.0); MEAN CORPUSCULAR VOLUME 91.8 fL (80.0-100.0); MEAN PLATELET VOLUME 8.6 fL (7.4-11.0); MONOCYTES # (AUTO) 1.5 x10^3/uL (0.3-0.8); MONOCYTES % (AUTO) 6.6 % (0.0-13.0); NEUTROPHILS # (AUTO) 19.9 x10^3/uL (2.2-4.8); NEUTROPHILS % (AUTO) 86.2 % (42.0-75.0); PLATELET COUNT 447 X10^3/uL (150.0-450.0); RED CELL DISTRIBUTION WIDTH 14.6 % (11.6-16.5); WHITE BLOOD COUNT 23.1 X10^3/uL (3.6-10.0)
[2023-04-03 06:11] LABS: ALANINE AMINOTRANSFERASE 38 Units/L (12-78); ALBUMIN 2.8 g/dL (3.4-5.0); ALKALINE PHOSPHATASE 107 Units/L (46-116); ASPARTATE AMINO TRANSFERASE 11 Units/L (15-37); BAND NEUTROPHILS % 4 % (0-10); BLOOD UREA NITROGEN 12 mg/dL (7-18); CALCIUM 7.8 mg/dL (8.5-10.1); CARBON DIOXIDE 24.6 mmol/L (21-32); CHLORIDE 98 mmol/L (98-107); COR CA(FOR HYPOALB) 8.8 mg/dL (8.5-10.1); COR NA(FOR HYPERGLY) 138 mmol/L (136-145); CREATININE 0.86 mg/dL (0.55-1.02); GLUCOSE 270 mg/dL (65-99); METAMYELOCYTES % 2; PLATELET MORPHOLOGY COMMENT NORMAL (NORMAL); POTASSIUM 3.5 mmol/L (3.5-5.1); SODIUM 134 mmol/L (136-145); TOTAL PROTEIN 6.2 g/dL (6.4-8.2); eGFR NON BLACK RACES > 60 (>60)
[2023-04-03] MEDS ORDERED: CONSULT PHARMACY - POTASSIUM & MAGNESIUM XX SCH (07:00)
--- NOTE | 2023-04-03 08:04 | RAD ---
EXAM:Portable chestHISTORY:HypoxiaCOMPARISON: chest x-ray and CT chestFINDINGS:Heart size is normal. Rosibel are normal. Lung de [place] are clear. No pleural effusions are identified. Bony thorax is unremarkable.IMPRESSION:No significant abnormality identifiedTHIS IS AN ELECTRONICALLY VERIFIED FINAL [id number]/03/2023 8:01 AM - Electronically signed by Garrick Sams MD
[2023-04-03] MEDS: PULMICORT NEB TX 0.5 MG NEB SCH (08:26)
[2023-04-03] MEDS: DECADRON JET NEB (RESP USE) NEB SCH (08:27)
[2023-04-03 08:31] VITALS: PULSE 108; O2SAT 98
[2023-04-03] MEDS: PROTONIX INJ 40 MG VIAL IVP SCH (08:51)
[2023-04-03] MEDS: DIFLUCAN 200 MG IV PREMIX* 200 MG/100 ML BAG IV SCH (08:51)
[2023-04-03] MEDS: ROBITUSSIN DM PO SCH (08:51)
[2023-04-03] MEDS: LEVAQUIN PREMIX IV 750 MG 750 MG/150 ML BAG IV SCH (08:51)
[2023-04-03] MEDS: ZyrTEC TAB 10 MG PO SCH (08:52)
[2023-04-03] MEDS ORDERED: K-DUR TAB 20 MEQ PO SCH (09:00)
[2023-04-03] MEDS ORDERED: COZAAR PO SCH (09:00)
[2023-04-03 10:17] VITALS: BP 141/74; RESP 20; TEMP 98.8
[2023-04-03] MEDS: TUSSIONEX PENNKINETIC SUSP PO SCH (11:33)
== END 2023-04-03 11:30 | disposition home or self-care (01) | DRG 202 ==
LOC: MED/SURG → OBSVTOIN 16:20
PROVIDERS: ADMIT Internal Medicine; ATTEND Internal Medicine
DX: E87.6 Hypokalemia; R73.09 Other abnormal glucose; E86.0 Dehydration; R53.1 Weakness; E83.42 Hypomagnesemia; B37.89 Other sites of candidiasis; K21.9 Gastro-esophageal reflux disease without esophagitis; J18.0 Bronchopneumonia, unspecified organism; Z20.822 Contact with and (suspected) exposure to COVID-19; J20.8 Acute bronchitis due to other specified organisms; J11.1 Influenza due to unidentified influenza virus with other respiratory manifestations